=== PATIENT | female | born 1965 | race Caucasian/White ===

== ENCOUNTER 2018-04-04 07:42 | Outpatient (CLI) | payer OTHER | END 2018-04-04 07:44 | disposition home or self-care (01) | LOC: SONOGRAMA 07:42 | DX: J98.4 Other disorders of lung (principal) ==

== ENCOUNTER 2018-04-04 10:11 | Outpatient (CLI) | payer OTHER | END 2018-04-04 17:00 | disposition home or self-care (01) | LOC: TOM 10:11 | DX: D16.4 Benign neoplasm of bones of skull and face (principal) ==

== ENCOUNTER → 2018-04-04 | Outpatient (CLI) | payer OTHER ==
[~2018-04-04] MED LIST: ORPH100T PO
== END | disposition home or self-care (01) ==
LOC: LAB 08:32
DX: K29.60 Other gastritis without bleeding (principal)

== ENCOUNTER 2018-12-20 12:14 | Outpatient (CLI) | payer OTHER | END 2018-12-20 15:31 | disposition home or self-care (01) | LOC: RAD 12:14 | DX: R07.89 Other chest pain (principal) ==

== ENCOUNTER 2019-04-19 13:32 | Outpatient (CLI) | payer OTHER | END 2019-04-19 13:45 | disposition home or self-care (01) | LOC: LAB 13:32 | DX: M25.50 Pain in unspecified joint (principal) ==

== ENCOUNTER → 2019-04-26 | Outpatient (CLI) | payer OTHER | END | disposition home or self-care (01) | LOC: NUCLEAR 11:00 | DX: M89.8X0 Other specified disorders of bone, multiple sites (principal); M81.0 Age-related osteoporosis without current pathological fracture ==

== ENCOUNTER 2019-07-03 14:30 | Outpatient (CLI) | payer OTHER | END 2019-07-03 16:12 | disposition home or self-care (01) | LOC: EKG 14:30 | DX: I25.5 Ischemic cardiomyopathy (principal); I20.8 Other forms of angina pectoris ==

== ENCOUNTER 2020-10-12 14:06 | Outpatient (CLI) | payer OTHER | END 2020-10-12 14:22 | disposition home or self-care (01) | LOC: RAD 14:06 | PROVIDERS: ATTEND General Practice | DX: M25.552 Pain in left hip (principal); M25.551 Pain in right hip; M54.10 Radiculopathy, site unspecified ==

== ENCOUNTER 2022-01-15 08:38 | Emergency (ER) | payer OTHER ==
[~2022-01-15] VITALS: Ht 172.7 cm; Wt 81.6 kg
== END 2022-01-15 11:02 | disposition home or self-care (01) ==
LOC: ER 08:38
DX: S20.219A Contusion of unspecified front wall of thorax, initial encounter (principal); X58.XXXA Exposure to other specified factors, initial encounter; Y93.9 Activity, unspecified; Y92.9 Unspecified place or not applicable; Y99.0 Civilian activity done for income or pay